=== PATIENT | female | born 1985 | race Caucasian/White ===

== ENCOUNTER 2017-12-25 09:11 | Emergency (ER) | payer OTHER ==
[2017-12-25] MEDS ORDERED: Sodium Chloride 0.9% 1000 ML 1,000 ML IV STA (09:27)
[2017-12-25] MEDS ORDERED: GI COCKTAIL 45 ML (Maalox/Lidocaine) PO ONE (09:32)
--- NOTE | 2017-12-25 09:37 | ERPHSYRPT ---
- History of Present Illness Time Seen by Provider: 12/25/17 09:22 Historian: patient Exam Limitations: no limitations Patient Subjective Stated Complaint: Mid Epigastric abdominal pain Triage Nursing Assessment: Pt presents to the ED with complaints of abdominal, intermittent since june. Pt states onset of this episode yesterday with slight improvement after taking prilosec and bentyl. Pt states deep breathing and movement makes pain worse. Pt describes pain as a tightness and states "feels like theres a rock in there." Physician History: This is a 32-year-old white female who states that she has been having epigastric pain off and on symptoms since June she states is worse with movement and deep breathing describes as a tightness and a cramping. She apparently was seen at [facility] yesterday has no vomiting patient states she been taking Prilosec and Bentyl without relief Past medical history patient denies, she does states that she had meningitis as a young child. ast surgical history includes tubal ligation and uterine ablation. Social history patient denies tobacco alcohol or illicit drug use. Timing/Duration: other (patient states pain off symptoms this time since yesterday) Quality: cramping Abdominal Pain Onset Location: epigastric Pain Radiation: no radiation Severity of Pain-Max: moderate Severity of Pain-Current: moderate Modifying Factors: Improves With: breathing, other (movement) Associated Symptoms: other (epigastric pain), No back, No chest pain, No diaphoresis, No diarrhea, No fever/chills, No fatigue, No headache, No heartburn , No loss of appetite, No nausea, No neck pain, No rash, No shortness of breath , No syncope, No vomiting, No weakness Allergies/Adverse Reactions: clarithromycin [From Biaxin] Allergy (Mild, Verified 12/25/17 09:22) Rash latex Allergy (Mild, Verified 12/25/17 09:22) Rash Home Medications: Dicyclomine HCl 20 mg [Bentyl 20 mg] 20 mg PO Q12H PRN PRN 12/25/17 [ History] Omeprazole [Prilosec] 20 mg PO DAILY 12/25/17 [History] Ondansetron ODT 4 MG [Zofran Odt 4 mg] 4 mg PO Q6H PRN PRN 12/25/17 [ History] Hx Tetanus, Diphtheria Vaccination/Date Given: No Hx Influenza Vaccination/Date Given: No Hx Pneumococcal Vaccination/Date Given: No Immunizations Up to Date: No - Review of Systems Constitutional: No Fever, No Chills Eyes: No Symptoms Ears, Nose, & Throat: No Symptoms Respiratory: No Cough, No Dyspnea Cardiac: No Chest Pain, No Edema, No Syncope Abdominal/Gastrointestinal: Abdominal Pain, No Nausea, No Vomiting, No Diarrhea , No Constipation, No Hematemesis, No Hematochezia, No Melena, No Dysphagia, No Appetite Changes Genitourinary Symptoms: No Dysuria Musculoskeletal: No Back Pain, No Neck Pain Skin: No Rash Neurological: No Dizziness, No Focal Weakness, No Sensory Changes Psychological: No Symptoms Endocrine: No Symptoms All Other Systems: Reviewed and Negative - Past Medical History Pertinent Past Medical History: No Neurological History: No Pertinent History ENT History: No Pertinent History Cardiac History: No Pertinent History Respiratory History: No Pertinent History Endocrine Medical History: No Pertinent History Musculoskeletal History: No Pertinent History GI Medical History: No Pertinent History History: No Pertinent History Psycho-Social History: No Pertinent History Female Reproductive Disorders: No Pertinent History Other Medical History: Meningitis - Past Surgical History Past Surgical History: Yes Neuro Surgical History: No Pertinent History Cardiac: No Pertinent History Respiratory: No Pertinent History Gastrointestinal: No Pertinent History Genitourinary: No Pertinent History Musculoskeletal: No Pertinent History Female Surgical History: Tubal Ligation - Social History Smoking Status: Former smoker Exposure to second hand smoke: No Drug Use: none Patient Lives Alone: No - Female History Hx Now: No - Nursing Vital Signs Nursing Vital Signs: Initial Vital Signs Temperature 98.1 F 12/25/17 09:16 Pulse Rate 76 12/25/17 09:16 Respiratory Rate 16 12/25/17 09:16 Blood Pressure 147/102 12/25/17 09:16 O2 Sat by Pulse Oximetry 97 12/25/17 09:16 Pain Scale Pain Intensity 0 - Physical Exam General Appearance: moderate distress, alert Eye Exam: PERRL/EOMI, eyes nml inspection Ears, Nose, Throat Exam: normal ENT inspection, pharynx normal, moist mucous membranes Neck Exam: normal inspection, non-tender, supple, full range of motion Respiratory Exam: normal breath sounds, lungs clear, No respiratory distress Cardiovascular Exam: regular rate/rhythm, normal heart sounds Gastrointestinal/Abdomen Exam: soft, normal bowel sounds, tenderness ( epigastric tenderness), No distention, No mass, No guarding, No ecchymosis, No pulsatile mass, No rebound, No hernia, No hepatomegaly, No organomegaly, No splenomegaly, No bruit Back Exam: normal inspection, normal range of motion, No CVA tenderness, No vertebral tenderness Extremity Exam: normal inspection, normal range of motion, pelvis stable Neurologic Exam: alert, oriented x 3, cooperative, 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 Fatty liver and evidence for old granulomatous disease 2. Remaining abdomen and pelvis without contrast is negative) Ordered Tests: Active Orders 24 hr Category Date Time Status EKG-ER Only STAT Care 12/25/17 09:31 Active IV Insertion STAT Care 12/25/17 09:27 Active ABDOMEN AND PELVIS W/0 CONTRAS [CT] Stat Exams 12/25/17 10:35 Completed AMYLASE Stat Lab 12/25/17 09:50 Completed CBC W DIFF Stat Lab 12/25/17 09:50 Completed CMP Stat Lab 12/25/17 09:50 Completed LIPASE Stat Lab 12/25/17 09:50 Completed TROPONIN Q3H Lab 12/25/17 09:45 Completed TROPONIN Q3H Lab 12/25/17 13:15 Ordered TROPONIN Q3H Lab 12/25/17 16:15 Ordered TROPONIN Q3H Lab 12/25/17 19:15 Ordered TROPONIN Q3H Lab 12/25/17 22:15 Ordered Medication Summary Discontinued Medications Generic Name Dose Route Start Last Admin Trade Name Freq PRN Reason Stop Dose Admin Al Hydrox/Mg Hydrox/Simethicone Confirm 12/25/17 09:41 Maalox Es 30 Ml Unit Dose Administered 12/25/17 09:42 Dose 30 ml .ROUTE .STK-MED ONE Sodium Chloride 1,000 mls @ 999 mls/hr 12/25/17 09:27 12/25/17 09:49 Sodium Chloride 0.9% 1000 Ml IV 12/25/17 10:27 999 mls/hr .Q1H1M STA Administration Sodium Chloride Confirm 12/25/17 09:41 Sodium Chloride 0.9% 1000 Ml Administered 12/25/17 09:42 Dose 1,000 mls @ ud .ROUTE .STK-MED ONE Lidocaine HCl Confirm 12/25/17 09:41 Xylocaine Hcl Viscous * Administered 12/25/17 09:42 Dose 1 ml .ROUTE .STK-MED ONE Magnesium Hydroxide 45 ml 12/25/17 09:32 12/25/17 09:49 Gi Cocktail 45 Ml (Maalox/Lidocaine) PO 12/25/17 09:33 45 ml STAT ONE Administration Lab/Rad Data: Laboratory Result Diagrams 12/25/17 09:50 12/25/17 09:50 Laboratory Results 12/25/17 12/25/17 12/25/17 Range/Units 09:50 09:50 09:45 WBC 5.5 (4.0-10.5) K/mm3 RBC 5.12 (4.1-5.4) M/mm3 Hgb 15.0 (12.0-16.0) gm/dl Hct 44.1 (35-47) % MCV 86.1 (78-100) fl MCH 29.3 (26-32) pg MCHC 34.0 (32-36) g/dl RDW 13.4 (11.5-14.0) % Plt Count 271 (150-450) K/mm3 MPV 10.6 H (6-9.5) fl Gran % 64.8 (36.0-66.0) % Eos # (Auto) 0.05 (0-0.5) Absolute Lymphs (auto) 1.40 (1.0-4.6) Absolute Monos (auto) 0.47 (0.0-1.3) Lymphocytes % 25.5 (24.0-44.0) % Monocytes % 8.6 (0.0-12.0) % Eosinophils % 0.9 (0.00-5.0) % Basophils % 0.2 (0.0-0.4) % Absolute Granulocytes 3.55 (1.4-6.9) Basophils # 0.01 (0-0.4) Sodium 141 (137-145) mmol/L Potassium 4.0 (3.5-5.1) mmol/L Chloride 108 H (98-107) mmol/L Carbon Dioxide 25 (22-30) mmol/L Anion Gap 12.6 (5-15) MEQ/L BUN 8 (7-17) mg/dL Creatinine 0.55 (0.52-1.04) mg/dL Estimated GFR > 60.0 ML/MIN Glucose 115 H (74-106) mg/dL Calcium 9.1 (8.4-10.2) mg/dL Total Bilirubin 1.60 H (0.2-1.3) mg/dL AST 621 H (14-36) U/L ALT 330 H (0-35) U/L Alkaline Phosphatase 93 (38-126) U/L Troponin I < 0.012 (0.000-0.034) ng/mL Serum Total Protein 7.3 (6.3-8.2) g/dL Albumin 4.2 (3.5-5.0) g/dL Amylase 38 (30-110) U/L Lipase 81 (23-300) U/L - Progress Progress: improved Progress Note: 12/25/17 09:39 32-year-old white female arrives with complaint of epigastric pain off and on since June of this year she describes this as a crampy pain. She apparently began having this pain again yesterday has no vomiting no diarrhea she was seen at [facility] yesterday chart has been reviewed from there at that time. Patient did have CBC EKG troponin lipase she was Given a diagnosis of chest pain, chest pain and back pain She was given a prescription for omeprazole 20 mg orally Patient states that she took Bentyl without relief this morning. Patient is given GI cocktail here in the emergency room, Will repeat patient's labs give patient 1 L of normal saline, 12/25/17 10:36 Patient states she is markedly improved after GI cocktail. Unfortunately patient's liver enzymes are elevated. Will go ahead and obtain CT of abdomen and pelvis with contrast. 12/25/17 12:19 CT of the abdomen and pelvis shows a fatty liver otherwise unremarkable. I've discussed this case briefly with Dr. Eng.Will place patient on Carafate suspension 16 ounces with 10 mL of viscous lidocaine 10 mill's by mouth 4 times a day before meals and at bedtime when necessary. Patient will need to follow-up with her family secondary to increased liver enzymes. - Departure Time of Disposition: 12:21 Departure Disposition: Home Clinical Impression: Epigastric pain, Elevated liver enzymes Condition: Fair Critical Care Time: No Referrals: ASHER MERRILL [Primary Care Provider] - Additional Instructions: Return home. Plenty of fluids clear fluids only 24-48 hours if abdominal pain. Carafate suspension 16 ounces with 10 mL of viscous lidocaine Mix 10 mL orally 4 times a day before meals and at bedtime as needed for epigastric pain. Follow-up with your family doctor. Continue Prilosec. Return for acute distress or for severe symptoms.
[2017-12-25] MEDS ORDERED: MAALOX ES 30 ML UNIT DOSE ONE (09:41)
[2017-12-25] MEDS ORDERED: Sodium Chloride 0.9% 1000 ML 1,000 ML ONE (09:41)
[2017-12-25] MEDS ORDERED: XYLOCAINE HCl Viscous ONE (09:41)
[2017-12-25 09:59] LABS: BASOPHIL % 0.2 % (0.0-0.4); Basophil (Absolute #) 0.01 (0-0.4); Eosinophil % 0.9 % (0.00-5.0); Eosinophil (Absolute #) 0.05 (0-0.5); Granulocyte Absolute (ANC) 3.55 (1.4-6.9); Granulocytes % 64.8 % (36.0-66.0); Hematocrit 44.1 % (35-47); Lymphocytes % 25.5 % (24.0-44.0); Mean Cell Volume 86.1 fl (78-100); Mean Corpuscular Hemoglobin 29.3 pg (26-32); Mean Platelet Volume 10.6 fl (6-9.5); Monocyte (Absolute #) 0.47 (0.0-1.3); Monocytes % 8.6 % (0.0-12.0); Platelet Count 271 K/mm3 (150-450); Red Blood Count 5.12 M/mm3 (4.1-5.4); Red Cell Distribution Width 13.4 % (11.5-14.0); White Blood Count 5.5 K/mm3 (4.0-10.5)
[2017-12-25 10:17] LABS: ALBUMIN 4.2 g/dL (3.5-5.0); ALKALINE PHOSPHATASE 93 U/L (38-126); AMYLASE 38 U/L (30-110); ANION GAP 12.6 MEQ/L (5-15); BLOOD UREA NITROGEN 8 mg/dL (7-17); CHLORIDE 108 mmol/L (98-107); Calcium 9.1 mg/dL (8.4-10.2); Carbon Dioxide 25 mmol/L (22-30); Creatinine 1 0.55 mg/dL (0.52-1.04); Glucose 115 mg/dL (74-106); LIPASE 81 U/L (23-300); SGOT/AST 621 U/L (14-36); SGPT/ALT 330 U/L (0-35); SODIUM 141 mmol/L (137-145); Total Protein 7.3 g/dL (6.3-8.2)
--- NOTE | 2017-12-25 11:40 | XRAY ---
Indication: Epigastric pain. Acid reflux. Multiple contiguous axial images obtained through the abdomen and pelvis without contrast as ordered. Comparison: None Lung bases demonstrates left lower lobe calcified granuloma. No infiltrate or effusion. Heart is not enlarged. A few left infrahilar calcified nodes. Noncontrasted stomach and bowel loops appear nonobstructed. Normal appendix. Bilateral tubal ligation clips. No free fluid/air. Mild fatty liver. Remaining liver, gallbladder, pancreas, spleen, adrenal glands, kidneys, ureters, bladder, uterus, and aorta appear unremarkable for noncontrast exam. Osseous structures intact. No ventral or inguinal hernias. Impression: 1. Fatty liver and evidence for old granulomatous disease. 2. Remaining CT abdomen/pelvis without contrast exam is negative. CT DI 23.68
[2017-12-25 11:43] VITALS: PULSE 80
[2017-12-25 12:13] VITALS: BP 117/75
[2017-12-25 12:23] VITALS: O2SAT 97
== END 2017-12-25 12:34 | disposition home or self-care (01) ==
LOC: ED 09:11
DX: R10.13 Epigastric pain (principal); R74.8 Abnormal levels of other serum enzymes; Z79.899 Other long term (current) drug therapy
CPT/HCPCS: 36000; 36415; 74176; 80053; 82150; 83690; 84484; 85025; 93005; 99284; A9270-GY